=== PATIENT | male | born 1965 | race Caucasian/White ===

== ENCOUNTER 2023-06-27 15:34 | Emergency (ER) | payer MEDICAID ==
[~2023-06-27] VITALS: Ht 177.8 cm; Wt 80.0 kg
[2023-06-27 15:49] VITALS: O2SAT 99
[2023-06-27] MEDS ORDERED: TETANUS, DIPHTHERIA, PERTUSSIS VAC/PF 0.5ML (>10YR OLD) IM ONE (16:15)
[2023-06-27] MEDS ORDERED: HYDROCODONE/ACETAMINOPHEN 5/325MG TABLET PO PRN (16:15)
[2023-06-27 16:23] VITALS: TEMP 98
[2023-06-27] MEDS ORDERED: TOPUD PO (18:21)
[2023-06-27 18:53] VITALS: BP 122/68; PULSE 68; RESP 16
== END 2023-06-27 18:56 | disposition home or self-care (01) ==
LOC: ER 15:56
DX: S00.03XA Contusion of scalp, initial encounter (principal); M79.10 Myalgia, unspecified site; W18.39XA Other fall on same level, initial encounter; Y93.89 Activity, other specified; Y92.89 Other specified places as the place of occurrence of the external cause; Y99.8 Other external cause status
CPT/HCPCS: 73130; 70450; 70486; 72125; 71250; 74176; 90715; 90471; 99285; Z7610